=== PATIENT | female | born 1995 | race Caucasian/White ===

== ENCOUNTER 2017-05-09 03:16 | Inpatient (IN) | payer OTHER, SELFPAY ==
[~2017-05-09] VITALS: Ht 154.9 cm; Wt 150.1 kg
[2017-05-09 03:46] LABS: APPEARANCE,URINE Turbid (CLEAR); BILIRUBIN,URINE Small (NEGATIVE); COLOR,URINE Dark Yellow (YELLOW); GLUCOSE, URINE (UA) Negative (NEGATIVE); KETONES,URINE 15 mg/dL (NEGATIVE); LEUKOCYTE ESTERASE ,URINE Small (NEGATIVE); NITRATE,URINE Positive (NEGATIVE); OCCULT BLOOD,URINE Large (NEGATIVE); PROTEIN,URINE POS 1+ (NEGATIVE)
[2017-05-09 04:07] LABS: RBC,URINE 26-50 /HPF (0-1)
[2017-05-09 04:08] LABS: BACTERIA,URINE Moderate /HPF (None Seen); MUCUS,URINE Many LPF (None Seen); SQUAMOUS EPITHELIAL CELL,UR Many /LPF (0-2)
[2017-05-09] MEDS ORDERED: KETOROLAC TROMETHAMINE 30MG/ML ONE (04:54)
[2017-05-09 05:15] LABS: BASOPHILS % (AUTO) 0.3 % (0.0-5.0); HEMATOCRIT 43.1 % (36-48); LYMPHOCYTES % (AUTO) 10.5 % (21.0-51.0); MEAN CORPUSCULAR HGB CONC 34.3 g/dL (32.0-36.0); MEAN CORPUSCULAR VOLUME 90.2 fL (79-99); MONOCYTES % (AUTO) 4.3 % (3.0-13.0); NEUTROPHILS % (AUTO) 84.9 % (40.0-77.0); PLATELET COUNT (AUTO) 360 K/uL (130-400); RED BLOOD CELL COUNT(AUTO) 4.77 MIL/uL (4.00-5.50); RED CELL DISTRIBUTION WIDTH 13.7 % (11.0-15.5)
[2017-05-09 06:04] LABS: CREATININE 0.9 mg/dL (0.5-1.5); POTASSIUM 3.5 mmol/L (3.5-5.1)
[2017-05-09] MEDS ORDERED: MORPHINE SULFATE 4 MG/1ML SYG ONE ×2 (06:04→10:53)
[2017-05-09 06:10] LABS: ALBUMIN 3.5 g/dL (3.5-5.0); BILIRUBIN,TOTAL 0.4 mg/dL (0.2-1.0); TOTAL PROTEIN, SERUM 7.7 g/dL (6.0-8.3)
[2017-05-09] MEDS ORDERED: ONDANSETRON HCL 4 MG/2 ML VIAL ONE (06:21)
[2017-05-09] MEDS ORDERED: IOPAMIDOL-370 75 ML VIAL IV ONE (06:31)
[2017-05-09] MEDS ORDERED: CEFTRIAXONE SODIUM 1 GM ONE ×2 (08:55→10:06)
[2017-05-09] MEDS ORDERED: GUAIFENESIN-DM 200/20 MG 10 ML PO PRN (10:15)
[2017-05-09] MEDS ORDERED: CEFTRIAXONE 2GM+NS 100ML 100 ML IV SCH (10:15)
[2017-05-09] MEDS ORDERED: MORPHINE SULFATE 4 MG/1ML SYG IV PRN (10:15)
[2017-05-09] MEDS ORDERED: ONDANSETRON HCL 4 MG/2 ML VIAL IV PRN (10:15)
[2017-05-09] MEDS ORDERED: ACETAMINOPHEN 325 MG TAB PO PRN (10:15)
[2017-05-09] MEDS ORDERED: HYDRALAZINE HCL 20 MG/ML VIAL IV PRN (10:15)
[2017-05-09] MEDS ORDERED: SODIUM CHLORIDE 0.9% 1000ML 1,000 ML IV ONE (10:47)
[2017-05-09] MEDS ORDERED: ENOXAPARIN SODIUM 40 MG/0.4 ML SYRINGE SQ ONE (10:48)
[2017-05-09] MEDS ORDERED: FAMOTIDINE 20MG TAB 20 MG TAB ONE (10:48)
[2017-05-09 12:25] VITALS: BP 149/90
[2017-05-09] MEDS: SODIUM CHLORIDE 0.9% 1000ML 1,000 ML IV SCH ×2 (12:45→23:28)
[2017-05-09] MEDS: ACETAMINOPHEN-CODEINE 300/30MG TAB PO PRN (13:22)
[2017-05-09 19:57] VITALS: BP 143/85
[2017-05-09] MEDS: FAMOTIDINE 20MG TAB 20 MG TAB PO SCH (21:07)
[2017-05-09 23:45] VITALS: BP 122/52
[2017-05-10 03:28] VITALS: BP 147/85
[2017-05-10] MEDS: ACETAMINOPHEN-CODEINE 300/30MG TAB PO PRN (04:33)
[2017-05-10 04:52] LABS: BASOPHILS % (AUTO) 0.6 % (0.0-5.0); EOSINOPHILS % (AUTO) 0.9 % (0.0-8.0); HEMATOCRIT 40.5 % (36-48); LYMPHOCYTES % (AUTO) 24.7 % (21.0-51.0); MEAN CORPUSCULAR HEMOGLOBIN 31.5 pg (27.0-33.0); MEAN CORPUSCULAR HGB CONC 34.6 g/dL (32.0-36.0); MEAN CORPUSCULAR VOLUME 91.1 fL (79-99); NEUTROPHILS % (AUTO) 64.8 % (40.0-77.0); PLATELET COUNT (AUTO) 278 K/uL (130-400); RED BLOOD CELL COUNT(AUTO) 4.45 MIL/uL (4.00-5.50); RED CELL DISTRIBUTION WIDTH 13.5 % (11.0-15.5); WHITE BLOOD COUNT (AUTO) 8.2 K/uL (4.8-10.8)
[2017-05-10 04:54] LABS: CREATININE 1.1 mg/dL (0.5-1.5); POTASSIUM 3.4 mmol/L (3.5-5.1)
[2017-05-10 07:47] VITALS: BP 123/66
[2017-05-10] MEDS: FAMOTIDINE 20MG TAB 20 MG TAB PO SCH (08:59)
[2017-05-10] MEDS ORDERED: TAMSULOSIN HCL 0.4 MG CAP.ER.24H PO SCH (09:00)
[2017-05-10] MEDS ORDERED: ENOXAPARIN SODIUM 40 MG/0.4 ML SYRINGE SQ SCH (09:00)
[2017-05-10] MEDS: SODIUM CHLORIDE 0.9% 1000ML 1,000 ML IV SCH ×2 (09:34→16:01)
[2017-05-10] MEDS ORDERED: CEFTRIAXONE SODIUM 2 GM VIAL IVP SCH (10:00)
[2017-05-10 11:49] VITALS: BP 136/76
[2017-05-10 15:58] VITALS: BP 140/66
[2017-05-10] MEDS ORDERED: CEFD300C3 PO (16:52)
[2017-05-10] MEDS ORDERED: TAMS-1 PO (16:52)
== END 2017-05-10 17:45 | disposition home or self-care (01) | DRG 694 ==
LOC: EDH 03:16 → EDHIP 03:17 → UNDOADMIN 10:17 → EDHIP 10:17 → WSH 12:25 → EDHIP 12:25
PROVIDERS: ADMIT Family Medicine; ATTEND Family Medicine
DX: N13.2 Hydronephrosis with renal and ureteral calculous obstruction (principal); E66.01 Morbid (severe) obesity due to excess calories; Z68.44 Body mass index [BMI] 60.0-69.9, adult; N39.0 Urinary tract infection, site not specified; Z87.442 Personal history of urinary calculi
CPT/HCPCS: 36415; 74178; 80048; 80053; 81001; 81025; 85025; 87088; A4218; J0696; J1650; J1885; J2270; J2405; J7030; Q9967